=== PATIENT | female | born 1955 | race African-American/Black ===

== ENCOUNTER 2022-03-19 07:49 | Day surgery (SDC) | payer OTHER, BC ==
[2022-03-15 14:11] VITALS: BMI 32.8
[2022-03-19] MEDS ORDERED: LIDOCAINE HCL/PF 2% SDV 5ML VIAL ONE (08:01)
[2022-03-19] MEDS ORDERED: PROPOFOL 20 ML ONE ×4 (08:01)
[2022-03-19 08:30] VITALS: TEMP 97.8
[2022-03-19 10:25] VITALS: BP 139/72; PULSE 80
== END 2022-03-19 10:35 | disposition home or self-care (01) ==
LOC: FASU-ENDO 07:49 → FASU 07:49
PROVIDERS: ATTEND Internal Medicine Gastroenterology
PROC: 0DJD8ZZ Inspection of Lower Intestinal Tract, Via Natural or Artificial Opening Endoscopic (ICD-10-PCS; principal; 2022-03-19 09:39)
DX: Z12.11 Encounter for screening for malignant neoplasm of colon (principal); K64.2 Third degree hemorrhoids; K57.30 Diverticulosis of large intestine without perforation or abscess without bleeding